=== PATIENT | male | born 1935 | race Caucasian/White ===

== ENCOUNTER 2018-10-05 01:33 | Inpatient (IN) | payer MEDICARE, OTHER ==
[~2018-10-05] VITALS: Ht 175.3 cm; Wt 119.9 kg
--- NOTE | 2018-10-05 01:43 | ED.ADGEN ---
Past History Past Medical History: Arthritis, CAD, CHF, COPD, Depression, Diabetes, Hypertension, Other Past Medical History Veinous stasis Adult General Chief Complaint Chief Complaint ".. I was getting up to go to the bathroom.. and tripped.. I hurt this Rt. knee it is hurting like a mother...".. 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 Pt. has bilateral abrasion and contusion to knee. Pt. can do straight leg lift with both. Has tenderness on attempts at ROM. Has marked venous stasis and leg edema which he states is chronic. Pt. has a history of diabetes, CHF, hypertension, arthritis, and coronary artery disease. Patient normally follows at NH.. Pt. some what a poor historian. Review of Systems Review of Systems Constitutional: Denies fever or chills [] Eyes: Denies change in visual acuity, redness, or eye pain [] HENT: Denies nasal congestion or sore throat [] Respiratory: Denies cough or shortness of breath [] Cardiovascular: No additional information not addressed in HPI [] GI: Denies abdominal pain, nausea, vomiting, bloody stools or diarrhea [] : Denies dysuria or hematuria [] Musculoskeletal: Denies back pain or joint pain other than chronic except for his current complaints of bilateral knee pain. complaints of generalized weakness. Integument: Denies rash or skin lesions [] Neurologic: Denies headache, focal weakness or sensory changes [] Endocrine: Denies polyuria or polydipsia [] All other systems were reviewed and found to be within normal limits, except as documented in this note. Family History Family History Noncontributory Current Medications Current Medications Current Medications Medications (Trade) Dose Ordered Sig/Royce Start Time Stop Time Status Last Admin Dose Admin Lactated Ringer's 1,000 ml @ 100 mls/hr Q10H 10/05/18 02:00 10/05/18 11:59 10/05/18 03:24 100 MLS/HR Allergies Allergies Allergies Coded Allergies Type Severity Reaction Last Updated Verified No Known Drug Allergies 10/05/18 No Physical Exam Physical Exam Constitutional: Moderate acute distress, non-toxic appearance. [] HENT: Normocephalic, atraumatic, bilateral external ears normal, oropharynx moist, no oral exudates, nose normal. [] Eyes: PERRLA, EOMI, conjunctiva normal, no discharge. [] Neck: Normal range of motion, no tenderness, supple, no stridor. [] Cardiovascular:Heart rate regular rhythm, no murmur []OH to the left Lungs & Thorax: Bilateral breath sounds equal at apex auscultation []some basilar crackles. Abdomen: Bowel sounds normal, soft, no tenderness, no masses, no pulsatile masses . Morbid obesity. Skin: Warm, dry, no erythema, no rash. [] Injection arnett on abd. Bilateral leg veinous stasis.. Back: No tenderness, no CVA tenderness. [] Extremities: bilateral leg and knee tenderness, no cyanosis, no clubbing, ROM intact, bilateral leg edema. [] Neurologic: Alert and oriented X 3 , moves ext. on request, decreased distal foot sensory, no gross focal deficits noted. [] Psychologic: Affect anxious, judgement normal, mood normal. [] Current Patient Data Vital Signs Vital Signs Date Time Temp Pulse Resp B/P (MAP) Pulse Ox O2 Delivery O2 Flow Rate FiO2 10/05/18 01:44 98.4 79 16 96 Room Air Lab Results Laboratory Tests Test 10/05/18 03:00 10/05/18 03:09 Urine Collection Type Unknown Urine Color Yellow Urine Clarity Clear Urine pH 5.5 Urine Specific [place] 1.015 Urine Protein Neg (NEG-TRACE) Urine Glucose (UA) Neg mg/dL (NEG) Urine Ketones (Stick) Neg mg/dL (NEG) Urine Blood Neg (NEG) Urine Nitrite Neg (NEG) Urine Bilirubin Neg (NEG) Urine Urobilinogen Dipstick 0.2 mg/dL (0.2 mg/dL) Urine Leukocyte Esterase Neg (NEG) Urine RBC 0 /HPF (0-2) Urine WBC Occ /HPF (0-4) Urine Squamous Epithelial Cells Occ /LPF Urine Bacteria 0 /HPF (0-FEW) Urine Opiates Screen Pos (NEG) Urine Methadone Screen Neg (NEG) Urine Barbiturates Neg (NEG) Urine Phencyclidine Screen Neg (NEG) Urine Amphetamine/Methamphetamine Neg (NEG) Urine Benzodiazepines Screen Neg (NEG) Urine Cocaine Screen Neg (NEG) Urine Cannabinoids Screen Neg (NEG) Urine Ethyl Alcohol Neg (NEG) White Blood Count 8.4 x10^3/uL (4.0-11.0) Red Blood Count 3.52 x10^6/uL (4.30-5.70) L Hemoglobin 10.2 g/dL (13.0-17.5) L Hematocrit 31.4 % (39.0-53.0) L Mean Corpuscular Volume 89 fL (79-100) Mean Corpuscular Hemoglobin 29 pg (25-35) Mean Corpuscular Hemoglobin Concent 32 g/dL (31-37) Red Cell Distribution Width 15.7 % (11.5-14.5) H Platelet Count 189 x10^3/uL (140-400) Neutrophils (%) (Auto) 79 % (31-73) H Lymphocytes (%) (Auto) 10 % (24-48) L Monocytes (%) (Auto) 10 % (0-9) H Eosinophils (%) (Auto) 0 % (0-3) Basophils (%) (Auto) 0 % (0-3) Neutrophils # (Auto) 6.7 x10^3uL (1.8-7.7) Lymphocytes # (Auto) 0.9 x10^3/uL (1.0-4.8) L Monocytes # (Auto) 0.9 x10^3/uL (0.0-1.1) Eosinophils # (Auto) 0.0 x10^3/uL (0.0-0.7) Basophils # (Auto) 0.0 x10^3/uL (0.0-0.2) Prothrombin Time 13.7 SEC (9.4-11.4) H Prothrombin Time INR 1.3 (0.9-1.1) H Activated Partial Thromboplast Time 32 SEC (23-33) D-Dimer ([place]) 0.66 mg/L (0.00-0.50) H Sodium Level 139 mmol/L (136-145) Potassium Level 4.7 mmol/L (3.5-5.1) Chloride Level 105 mmol/L (98-107) Carbon Dioxide Level 29 mmol/L (21-32) Anion Gap 5 (6-14) L Blood Urea Nitrogen 42 mg/dL (8-26) H Creatinine 1.7 mg/dL (0.7-1.3) H Estimated GFR (Cockcroft-Gault) 38.7 Glucose Level 119 mg/dL (70-99) H Calcium Level 8.7 mg/dL (8.5-10.1) Magnesium Level 2.0 mg/dL (1.8-2.4) Total Bilirubin 0.5 mg/dL (0.2-1.0) Direct Bilirubin 0.1 mg/dL (0.0-0.2) Aspartate Amino Transferase (AST) 16 U/L (15-37) Alanine Aminotransferase (ALT) 12 U/L (16-63) L Alkaline Phosphatase 60 U/L (46-116) Creatine Kinase 93 U/L (39-308) Troponin I Quantitative 0.383 ng/mL (0-0.055) H UB-Ovf-O-Type Natriuretic Peptide 2062 pg/mL (0-449) H Total Protein 7.3 g/dL (6.4-8.2) Albumin 2.8 g/dL (3.4-5.0) L Lipase 71 U/L (73-393) L EKG EKG My interpretation of EKG shows a sinus rhythm at 78. There is prolonged VA interval first-degree block. Left axis deviation. And fascicular block. But no findings acute STEMI with contralateral changes.[] Radiology/Procedures Radiology/Procedures My interpretation a film shows marked degenerative joint changes. No obvious displaced fracture or dislocation..[] My interpretation chest x-ray shows cardiomegaly. Some cephalization consistent with CHF. Has findings consistent with COPD. See formal [place] [address] IMAGING REPORT Signed PATIENT: LUZ MARINA COHEN ACCOUNT: [id number] : 1935 LOCATION: ER AGE: 83 SEX: M EXAM STATUS: REG ER ORD. PHYSICIAN: CHECO DAVID MD REASON: Fall, rigth knee pain PROCEDURE: KNEE RIGHT 4V 4 view right knee dated 10/05/2018. No comparison available. CLINICAL INDICATION: Pain after fall. FINDINGS: 4 views right knee show normal bony alignment. No displaced fracture. Moderate tricompartmental hypertrophic change with small marginal osteophytes. No apparent joint effusion or loose body. Diffuse soft tissue swelling. IMPRESSION: 1. No acute radiographic abnormality. 2. Moderate tricompartmental DJD. 3. Diffuse soft tissue swelling. Electronically signed by: Efrain Cool MD (10/05/2018 3:57 AM) [facility] DICTATED AND SIGNED BY: EFRAIN COOL MD DATE: 10/05/18356 CC: CHECO DAVID MD; PCP,NO ~ [place] [address] IMAGING REPORT Signed PATIENT: LUZ MARINA COHEN ACCOUNT: [id number] : 1935 LOCATION: ER AGE: 83 SEX: M EXAM STATUS: REG ER ORD. PHYSICIAN: CHECO DAVID MD REASON: Fall, chest and back pain PROCEDURE: PORTABLE CHEST 1V Single view chest dated 10/05/2018. No comparison available. CLINICAL INDICATION: Pain after fall. FINDINGS: Single upright portable exam performed. Heart and mediastinal contours within normal limits. Lungs are somewhat hypoinflated but otherwise clear. No consolidation or pleural effusion. No pneumothorax. IMPRESSION: No acute radiographic abnormality. Electronically signed by: Efrain Cool MD (10/05/2018 3:59 AM) [facility] DICTATED AND SIGNED BY: EFRAIN COOL MD DATE: 10/05/18358 CC: CHECO DAVID MD; PCP,NO ~ Course & Med Decision Making Course & Med Decision Making Pertinent Labs and Imaging studies reviewed. (See chart for details) Heart score 5-[address] Aldrich-with cardiology consult. [] Final Impression Final Impression 1. Fall 2. Abrasion/ Contusions 3. Bilateral Knee Pain Rt> Lt. 4. Weakness 5. Elevated Trop. 0.383 6. CHF systolic and diastolic-- BNP 2061 7. Anemia 10.2 8. Elevated creatinine and BUN/42/1.7 9. DM 10. Malnutrition Alb. 2.8 11. Elevated D-dimer ( Reportedly on Eliquis) 12. HTN [] Dragon Disclaimer Dragon Disclaimer This electronic medical record was generated, in whole or in part, using a voice recognition dictation system. Dragon Disclaimer This chart was dictated in whole or in part using Voice Recognition software in a busy, high-work load, and often noisy Emergency Department environment. It may contain unintended and wholly unrecognized errors or omissions. CHECO DAVID MD Oct 05, 2018 01:43
[2018-10-05] MEDS ORDERED: IV RINGERS SOLUTION,LACTATED 1,000 ML IV SCH (02:00)
[2018-10-05 03:27] LABS: BASO % 0 % (0-3); EOS % 0 % (0-3); HEMATOCRIT 31.4 % (39.0-53.0); HEMOGLOBIN 10.2 g/dL (13.0-17.5); LYMPH # 0.9 x10^3/uL (1.0-4.8); LYMPH % 10 % (24-48); MEAN CORPUSCULAR HEMOGLOBIN 29 pg (25-35); MEAN CORPUSCULAR HGB CONC 32 g/dL (31-37); MEAN CORPUSCULAR VOLUME 89 fL (79-100); MONO # 0.9 x10^3/uL (0.0-1.1); MONO % 10 % (0-9); NEUT # 6.7 x10^3uL (1.8-7.7); NEUT % 79 % (31-73); PLATELET COUNT 189 x10^3/uL (140-400); RED BLOOD COUNT 3.52 x10^6/uL (4.30-5.70); RED CELL DISTRIBUTION WIDTH 15.7 % (11.5-14.5); WHITE BLOOD COUNT 8.4 x10^3/uL (4.0-11.0)
[2018-10-05 03:36] LABS: BARBITURATES NEG (NEG); BENZODIAZEPINES NEG (NEG); BILIRUBIN,URINE NEG (NEG); CANNABINOIDS NEG (NEG); CLARITY,URINE CLEAR; COCAINE NEG (NEG); COLOR,URINE YELLOW; GLUCOSE,URINE NEG (NEG); METHADONE NEG (NEG); OPIATES POS (NEG); PHENCYCLIDINE NEG (NEG)
[2018-10-05 03:37] LABS: BACTERIA,URINE 0 /HPF (0-FEW); NITRITE,URINE NEG (NEG); RBC,URINE 0 /HPF (0-2); SQUAMOUS EPITHELIAL CELL,UR OCC /LPF; UROBILINOGEN,URINE 0.2 mg/dL (0.2 mg/dL); WBC,URINE OCC /HPF (0-4)
[2018-10-05 03:38] LABS: AMPHETAMINE/METHAMPHETAMINE NEG (NEG)
[2018-10-05 03:45] LABS: ALBUMIN 2.8 g/dL (3.4-5.0); CALCIUM 8.7 mg/dL (8.5-10.1); CREATININE 1.7 mg/dL (0.7-1.3); DIRECT BILIRUBIN 0.1 mg/dL (0.0-0.2); GFR 38.7; POTASSIUM 4.7 mmol/L (3.5-5.1); TOTAL BILIRUBIN 0.5 mg/dL (0.2-1.0); TOTAL PROTEIN 7.3 g/dL (6.4-8.2)
--- NOTE | 2018-10-05 04:00 | RAD ---
4 view right knee dated 10/05/2018. No comparison available. CLINICAL INDICATION: Pain after fall. FINDINGS: 4 views right knee show normal bony alignment. No displaced fracture. Moderate tricompartmental hypertrophic change with small marginal osteophytes. No apparent joint effusion or loose body. Diffuse soft tissue swelling. IMPRESSION: 1. No acute radiographic abnormality. 2. Moderate tricompartmental DJD. 3. Diffuse soft tissue swelling. Electronically signed by: Efrain Cool MD (10/05/2018 3:57 AM) [facility]
--- NOTE | 2018-10-05 04:02 | RAD ---
Single view chest dated 10/05/2018. No comparison available. CLINICAL INDICATION: Pain after fall. FINDINGS: Single upright portable exam performed. Heart and mediastinal contours within normal limits. Lungs are somewhat hypoinflated but otherwise clear. No consolidation or pleural effusion. No pneumothorax. IMPRESSION: No acute radiographic abnormality. Electronically signed by: Efrain Cool MD (10/05/2018 3:59 AM) [facility]
[2018-10-05] MEDS ORDERED: ONDANSETRON PF 4 MG/2 ML VIAL. IV PRN (04:15)
[2018-10-05] MEDS ORDERED: ACETAMINOPHEN 325 MG TABLET PO PRN (04:15)
[2018-10-05] MEDS ORDERED: ASPIRIN 325 MG TABLET PO ONE (04:30)
[2018-10-05] MEDS ORDERED: MORPHINE SULFATE 10 MG/ML SYRINGE. SQ ONE (04:30)
[2018-10-05] MEDS ORDERED: ENOXAPARIN ** NOTE DOSE ** SYRINGE SQ ONE (04:30)
[2018-10-05] MEDS ORDERED: NITROGLYCERIN OINT 1 GM PACKET. TP ONE (04:30)
[2018-10-05] MEDS ORDERED: FUROSEMIDE 40 MG/4 ML VIAL IVP ONE (04:30)
[2018-10-05 05:17] VITALS: BP 109/63
[2018-10-05] MEDS ORDERED: ANTI-COAG MONITOR BY PHARMACY. MC PRN (06:15)
--- NOTE | 2018-10-05 06:46 | EKG ---
[address] [address] Test Date: 2018-10-05 Test Time: 02:02:02 Pat Name: LUZ MARINA COHEN Department: Room: 105 A Gender: Assembly Inspector: : 1935 Requested By: CHECO DAVID Order Number: [id number] Reading MD: Broderick Barraza MD Measurements Intervals [place] Rate: P: ID: QRS: QRSD: T: QT: QTc: Interpretive Statements SR Electronically Signed On 10-12-2018 16:52:24 CDT by Broderick Barraza MD
[2018-10-05] MEDS: IPRATRPIUM/ALBUTEROL 0.5/2.5MG 3 ML NEBU. NEB SCH ×4 (08:00→18:20)
--- NOTE | 2018-10-05 08:09 | PDOC2 ---
CARDIAC CONSULT DATE OF CONSULT Date Of Consult DATE: 10/05/18 TIME: 08:05 REASON FOR CONSULT Reason for Consult CHF Elevated troponin REFERRING PHYSICIAN Referring Physician Dr. Morin SOURCE Source: Chart review, Patient HPI History of Present Illness This is an 83 yo male who presented with right knee pain secondary to fall. Byron sandra reports he was up out of bed about midnight to us the restroom. Stood up from the commode and pulled up his undergarments. Took a step forward and his right knee gave out, subsequently falling to the floor. Was unable to get up. Was on the floor for about 3 hours until was awake and heard him yelling for help. She called EMS. Troponin noted to be mildly elevated upon arrival, which prompted this consult. Patient denies any chest pain, dizziness, diaphoresis, palpitations, shortness of breath at rest, or nausea/vomiting. Does complain of [place], which he reports as his baseline. No recent illness/fevers. Does report decreased oral intake more recently. Takes Lasix at home. PAST MEDICAL HISTORY Cardiovascular: CHF, HTN, hyperipidemia, Other (Lymphedema ) Pulmonary: COPD Psych: Depression Musculoskeletal: Osteoarthritis Endocrine: Diabetes PAST SURGICAL HISTORY Past Surgical History: No pertinent history FAMILY HISTORY Family History: Diabetes, Hypertension, Stroke (mother ) SOCIAL HISTORY Smoke: No ALCOHOL: none Drugs: None Lives: with Family CURRENT MEDICATIONS Current Medications Current Medications Lactated Ringer's 1,000 ml @ 100 mls/hr Q10H IV Last administered on 10/05/18at 03:24; Start 10/05/18 at 02:00; Stop 10/05/18 at 11:59 Aspirin (Shayy Aspirin) 325 mg 1X ONCE PO Last administered on 10/05/18at 04:21; Start 10/05/18 at 04:30; Stop 10/05/18 at 04:31; Status DC Enoxaparin Sodium (Lovenox 120mg Syringe) 120 mg 1X ONCE SQ Last administered on 10/05/18at 06:03; Start 10/05/18 at 04:30; Stop 10/05/18 at 04:31; Status DC Nitroglycerin (Nitro-Bid Oint) 1 inch 1X ONCE TP Last administered on 10/05/18at 04:21; Start 10/05/18 at 04:30; Stop 10/05/18 at 04:31; Status DC Ondansetron HCl (Zofran) 4 mg PRN Q4HRS PRN IV NAUSEA/VOMITING; Start 10/05/18 at 04:15; Stop 10/06/18 at 04:14 Albuterol/ Ipratropium (Duoneb) 3 ml RTQID NEB ; Start 10/05/18 at 08:00; Stop 10/06/18 at 07:59 Furosemide (Lasix) 40 mg 1X ONCE IVP Last administered on 10/05/18at 04:28; Start 10/05/18 at 04:30; Stop 10/05/18 at 04:31; Status DC Enoxaparin Sodium (Lovenox 120mg Syringe) 120 mg Q12HR SQ ; Start 10/05/18 at 21:00 Aspirin (Children'S Aspirin) 81 mg DAILY PO ; Start 10/05/18 at 09:00 Acetaminophen (Tylenol) 650 mg PRN Q4HRS PRN PO FEVER; Start 10/05/18 at 04:15; Stop 10/06/18 at 04:14 Morphine Sulfate (Morphine 10mg Syringe) 10 mg 1X ONCE SQ Last administered on 10/05/18at 04:20; Start 10/05/18 at 04:30; Stop 10/05/18 at 04:31; Status DC Nystatin (Nystop) 1 milo BID TP ; Start 10/05/18 at 09:00 Info (Anti-Coagulation Monitoring By Pharmacy) 1 each PRN DAILY PRN MC SEE COMMENTS; Start 10/05/18 at 06:15; Stop 10/05/18 at 07:09; Status DC ALLERGIES Allergies: Coded Allergies: No Known Drug Allergies (Unverified , 10/05/18) ROS Review of Systems 14 point ROS conducted with pertinent positives noted above in HPI. PHYSICAL EXAM General: Alert, Oriented X3, Cooperative, No acute distress HEENT: Atraumatic, Mucous membr. moist/pink Lungs: Clear to auscultation Heart: Regular rate, Normal S1, Normal S2, Other (2/6 systolic murmur ) Abdomen: Soft, No tenderness Extremities: Other (lymphedema ) Skin: No breakdown Neuro: Normal speech, Sensation intact Psych/Mental Status: Mental status NL, Mood NL MUSCULOSKELETAL: Osteoarthritic changes both hands VITALS Vital Signs Vital Signs Date Time Temp Pulse Resp B/P (MAP) Pulse Ox O2 Delivery O2 Flow Rate FiO2 10/05/18 05:17 98.1 78 22 109/63 (78) 94 Room Air LABS LABS Laboratory Tests Test 10/05/18 03:00 10/05/18 03:09 Urine Collection Type Unknown Urine Color Yellow Urine Clarity Clear Urine pH 5.5 Urine Specific [place] 1.015 Urine Protein Neg (NEG-TRACE) Urine Glucose (UA) Neg mg/dL (NEG) Urine Ketones (Stick) Neg mg/dL (NEG) Urine Blood Neg (NEG) Urine Nitrite Neg (NEG) Urine Bilirubin Neg (NEG) Urine Urobilinogen Dipstick 0.2 mg/dL (0.2 mg/dL) Urine Leukocyte Esterase Neg (NEG) Urine RBC 0 /HPF (0-2) Urine WBC Occ /HPF (0-4) Urine Squamous Epithelial Cells Occ /LPF Urine Bacteria 0 /HPF (0-FEW) Urine Opiates Screen Pos (NEG) Urine Methadone Screen Neg (NEG) Urine Barbiturates Neg (NEG) Urine Phencyclidine Screen Neg (NEG) Urine Amphetamine/Methamphetamine Neg (NEG) Urine Benzodiazepines Screen Neg (NEG) Urine Cocaine Screen Neg (NEG) Urine Cannabinoids Screen Neg (NEG) Urine Ethyl Alcohol Neg (NEG) White Blood Count 8.4 x10^3/uL (4.0-11.0) Red Blood Count 3.52 x10^6/uL (4.30-5.70) Hemoglobin 10.2 g/dL (13.0-17.5) Hematocrit 31.4 % (39.0-53.0) Mean Corpuscular Volume 89 fL (79-100) Mean Corpuscular Hemoglobin 29 pg (25-35) Mean Corpuscular Hemoglobin Concent 32 g/dL (31-37) Red Cell Distribution Width 15.7 % (11.5-14.5) Platelet Count 189 x10^3/uL (140-400) Neutrophils (%) (Auto) 79 % (31-73) Lymphocytes (%) (Auto) 10 % (24-48) Monocytes (%) (Auto) 10 % (0-9) Eosinophils (%) (Auto) 0 % (0-3) Basophils (%) (Auto) 0 % (0-3) Neutrophils # (Auto) 6.7 x10^3uL (1.8-7.7) Lymphocytes # (Auto) 0.9 x10^3/uL (1.0-4.8) Monocytes # (Auto) 0.9 x10^3/uL (0.0-1.1) Eosinophils # (Auto) 0.0 x10^3/uL (0.0-0.7) Basophils # (Auto) 0.0 x10^3/uL (0.0-0.2) Prothrombin Time 13.7 SEC (9.4-11.4) Prothromb Time International Ratio 1.3 (0.9-1.1) Activated Partial Thromboplast Time 32 SEC (23-33) D-Dimer ([place]) 0.66 mg/L (0.00-0.50) Sodium Level 139 mmol/L (136-145) Potassium Level 4.7 mmol/L (3.5-5.1) Chloride Level 105 mmol/L (98-107) Carbon Dioxide Level 29 mmol/L (21-32) Anion Gap 5 (6-14) Blood Urea Nitrogen 42 mg/dL (8-26) Creatinine 1.7 mg/dL (0.7-1.3) Estimated GFR (Cockcroft-Gault) 38.7 Glucose Level 119 mg/dL (70-99) Calcium Level 8.7 mg/dL (8.5-10.1) Magnesium Level 2.0 mg/dL (1.8-2.4) Total Bilirubin 0.5 mg/dL (0.2-1.0) Direct Bilirubin 0.1 mg/dL (0.0-0.2) Aspartate Amino Transf (AST/SGOT) 16 U/L (15-37) Alanine Aminotransferase (ALT/SGPT) 12 U/L (16-63) Alkaline Phosphatase 60 U/L (46-116) Creatine Kinase 93 U/L (39-308) Troponin I Quantitative 0.383 ng/mL (0-0.055) ZS-Xgd-J-Type Natriuretic Peptide 2062 pg/mL (0-449) Total Protein 7.3 g/dL (6.4-8.2) Albumin 2.8 g/dL (3.4-5.0) Lipase 71 U/L (73-393) ASSESSMENT/PLAN Assessment/Plan 1. Fall, mechanical with right knee pain. No acute fractures 2. Mild troponin elevation; initial 0.383. Most probably type II, demand ischemia in the setting of TYLOR 3. TYLOR; IVFs 4. Chronic diastolic HF; appears clinically compensated. 5. Hypertension; controlled 6. Hyperlipidemia 7. Diabetes, II; as per PCP 8. Chronic LE lymphedema Recommendations Hold Lasix for now IVFs ASA Echo to assess LV systolic function Trend troponin, lipid panel Supportive care from a CV standpoint Consider outpatient ischemic evaluation unless echo significantly abnormal. GENEVIEVE VERA APRN Oct 05, 2018 08:09
[2018-10-05] MEDS: ASPIRIN 81 MG TAB.CHEW PO SCH (08:49)
--- NOTE | 2018-10-05 09:44 | RAD ---
Examination: Bilateral Lower Extremity Venous Doppler Ultrasound History: Bilateral lower extremity edema Comparison: None Procedure: [place] scale, color flow 2D and spectal waveform analysis images are obtained with and without compression in the area of the common femoral vein, superficial femoral vein - femoral vein junction, main femoral vein (superficial femoral vein) and popliteal vein. Veins of the proximal calf are also imaged. Findings: There is normal duplex flow, color flow and compressibility of all visualized vein segments. No evidence of deep venous thrombus is present. Impression: No evidence of bilateral lower extremity DVT. Electronically signed by: Papi Morales MD (10/05/2018 9:40 AM) [facility]
[2018-10-05 10:53] VITALS: BP 135/61
[2018-10-05] MEDS ORDERED: HEPARIN 25,000UTS/500ML PREMIX 500 ML IV PRN (11:00)
[2018-10-05] MEDS ORDERED: HEPARIN for IV BOLUS 10,000 UNIT/10 ML VIAL. IV PRN ×2 (11:00)
[2018-10-05] MEDS ORDERED: HEPARIN for IV BOLUS 10,000 UNIT/10 ML VIAL. IV ONE (11:00)
[2018-10-05] MEDS: NYSTATIN TOPICAL POWDER 15GM BOTTLE. TP SCH ×2 (13:07→20:59)
[2018-10-05] MEDS: INSULIN LISPRO 300 UNITS/3 ML VIAL. SQ SCH ×2 (13:09→18:37)
[2018-10-05] MEDS ORDERED: LIDO35.4 TP (13:51)
[2018-10-05] MEDS ORDERED: HYDR-2765 PO ×2 (13:51)
[2018-10-05] MEDS ORDERED: OXYB5TAB7 PO (13:51)
[2018-10-05] MEDS ORDERED: IPRA3AMP29 NEB (13:51)
[2018-10-05] MEDS ORDERED: CHOL100013 PO (13:51)
[2018-10-05] MEDS ORDERED: SILV20CR14 TP (13:51)
[2018-10-05] MEDS ORDERED: POLY17PO5 PO (13:51)
[2018-10-05] MEDS ORDERED: FLUT50DI IH (13:51)
[2018-10-05] MEDS ORDERED: RIVA20TA2 PO (13:51)
[2018-10-05] MEDS ORDERED: MENT120C2 TP (13:51)
[2018-10-05] MEDS ORDERED: SPIR25TA5 PO (13:51)
[2018-10-05] MEDS ORDERED: METO100T7 PO (13:51)
[2018-10-05] MEDS ORDERED: LOSA100T14 PO (13:51)
[2018-10-05] MEDS ORDERED: ASPI-630 PO (13:51)
[2018-10-05 15:30] VITALS: BP 149/65
[2018-10-05] MEDS ORDERED: LIDOCAINE 5% TOPICAL OINTMENT 35GM TUBE. TP PRN (15:45)
[2018-10-05] MEDS ORDERED: POLYETHYLENE GLYCOL 3350 17 GM PACKET. PO PRN (15:45)
--- NOTE | 2018-10-05 15:54 | CARD ---
MR#: [id number] Date of Study: 10/05/2018 Ordering Physician: GENEVIEVE VERA, Referring Physician: GENEVIEVE VERA, Tech: Naomie Schmidt RDCS APPROVED REPORT EXAM: Two-dimensional and M-mode echocardiogram with Doppler and color Doppler. Other Information Quality : Technically Limited Technically limited study due to body habitus and supine position INDICATION Congestive Heart Failure Elevated Troponin RISK FACTORS Obesity 2D DIMENSIONS RVDd3.1 (2.9-3.5cm)Left Atrium(2D)3.6 (1.6-4.0cm) IVSd1.3 (0.7-1.1cm)Aortic Root(2D)3.4 (2.0-3.7cm) LVDd4.5 (3.9-5.9cm)PWd1.2 (0.7-1.1cm) LVDs2.8 (2.5-4.0cm)FS (%) 36.8 % SV61.7 mlLVEF(%)66.8 (>50%) Aortic Valve AoV Peak David.134.4cm/sAoV VTI28.9cm AO Peak GR.7.2mmHgAO Mean GR.5mmHg MONA (VTI)3.25cm2 Mitral Valve MV E Lcystxsf16.7cm/sMV DECEL SWHN596ar MV A Qjdwahrd155.6cm/sE/A Ratio0.7 LEFT VENTRICLE The left ventricle is normal size. There is mild concentric left ventricular hypertrophy. Left ventri jeanine systolic function is normal. The Ejection Fraction is 55-60%. Transmitral Doppler flow pattern is Grade I-abnormal relaxation pattern. RIGHT VENTRICLE The right ventricle is normal size. The right ventricular systolic function is normal. ATRIA The left atrium size is normal. The right atrium size is normal. The interatrial septum is intact wit h no evidence for an atrial septal defect or patent foramen ovale as noted on 2-D or Doppler imaging. AORTIC VALVE The aortic valve is not well visualized but appears to be functioning normally by Doppler interrogati on. Doppler and Color Flow revealed no significant aortic regurgitation. There is no significant aort ic valvular stenosis. MITRAL VALVE The mitral valve is calcified but opens well. There is no evidence of mitral valve prolapse. There is no mitral valve stenosis. Doppler and Color Flow revealed no mitral valve regurgitation noted. TRICUSPID VALVE The tricuspid valve is normal in structure and function. Doppler and Color Flow revealed no tricuspid valve regurgitation noted. There is no tricuspid valve stenosis. PULMONIC VALVE The pulmonic valve is not well visualized. Doppler and Color Flow revealed no pulmonic valvular regur gitation. There is no pulmonic valvular stenosis. GREAT VESSELS The aortic root is normal in size. The ascending aorta is not well seen. The IVC is normal in size an d collapses >50% with inspiration. PERICARDIAL EFFUSION There is no evidence of significant pericardial effusion. Critical Notification Critical Value: No <Conclusion> Technically difficult study. Left ventricle systolic function is normal. The Ejection Fraction is 55-60%. Transmitral Doppler flow pattern is Grade I-abnormal relaxation pattern. There is no evidence of significant pericardial effusion. Signed by : Christian Carter, Electronically Approved : 10/05/2018 15:54:31
[2018-10-05] MEDS ORDERED: VITS A & D/LANOLIN TOPICAL OINTMENT 56GM TUBE. TP PRN (16:30)
[2018-10-05] MEDS ORDERED: METHYL SALICYLATE/MENTHOL TOPICAL OINTMENT 29GM TUBE. TP PRN (16:30)
[2018-10-05] MEDS: IV NORMAL SALINE 1,000ML 1,000 ML IV SCH (16:38)
[2018-10-05] MEDS: HYDROcodone/APAP 7.5/325MG 1 TAB TABLET PO PRN (16:39)
[2018-10-05] MEDS ORDERED: IPRATRPIUM/ALBUTEROL 0.5/2.5MG 3 ML NEBU. NEB SCH (17:00)
[2018-10-05 18:52] VITALS: BP 155/99
[2018-10-05 18:57] VITALS: BP 156/67
[2018-10-05] MEDS ORDERED: INSU100I13 SQ (19:33)
[2018-10-05] MEDS: BUDESONIDE 0.5 MG/2 ML NEBU NEB SCH (19:55)
[2018-10-05] MEDS: AMMONIUM LACTATE 12% TOPICAL LOTION 226GM BOTTLE. TP SCH (20:26)
[2018-10-05] MEDS ORDERED: INSULIN GLARGINE 300 UNITS/3 ML INSULN.PEN. SQ SCH (21:00)
[2018-10-05] MEDS ORDERED: ENOXAPARIN ** NOTE DOSE ** SYRINGE SQ SCH (21:00)
[2018-10-05] MEDS ORDERED: OXYBUTYNIN CHLORIDE 5 MG TABLET PO SCH (21:00)
[2018-10-05 21:15] VITALS: BP 127/73
[2018-10-05] MEDS: METOPROLOL TART IMMED RELEASE 50 MG TABLET PO SCH (21:26)
[2018-10-06 00:56] VITALS: BP 129/81
[2018-10-06] MEDS: IV NORMAL SALINE 1,000ML 1,000 ML IV SCH (05:05)
[2018-10-06 05:10] VITALS: BP 109/54
[2018-10-06] MEDS: BUDESONIDE 0.5 MG/2 ML NEBU NEB SCH (05:25)
[2018-10-06] MEDS: IPRATRPIUM/ALBUTEROL 0.5/2.5MG 3 ML NEBU. NEB SCH (05:25)
[2018-10-06 06:13] LABS: BASO % 1 % (0-3); EOS % 0 % (0-3); HEMATOCRIT 27.7 % (39.0-53.0); HEMOGLOBIN 9.1 g/dL (13.0-17.5); LYMPH # 0.9 x10^3/uL (1.0-4.8); LYMPH % 15 % (24-48); MEAN CORPUSCULAR HEMOGLOBIN 29 pg (25-35); MEAN CORPUSCULAR HGB CONC 33 g/dL (31-37); MEAN CORPUSCULAR VOLUME 89 fL (79-100); MONO # 0.8 x10^3/uL (0.0-1.1); MONO % 13 % (0-9); NEUT # 4.4 x10^3uL (1.8-7.7); NEUT % 72 % (31-73); PLATELET COUNT 170 x10^3/uL (140-400); RED BLOOD COUNT 3.11 x10^6/uL (4.30-5.70); RED CELL DISTRIBUTION WIDTH 15.9 % (11.5-14.5); WHITE BLOOD COUNT 6.1 x10^3/uL (4.0-11.0)
[2018-10-06 06:21] LABS: CALCIUM 8.4 mg/dL (8.5-10.1); CREATININE 1.3 mg/dL (0.7-1.3); GFR 52.7; POTASSIUM 4.4 mmol/L (3.5-5.1)
[2018-10-06] MEDS: HYDROcodone/APAP 7.5/325MG 1 TAB TABLET PO PRN (06:23)
[2018-10-06] MEDS: ASPIRIN 81 MG TAB.CHEW PO SCH (08:42)
[2018-10-06] MEDS: AMMONIUM LACTATE 12% TOPICAL LOTION 226GM BOTTLE. TP SCH (08:43)
[2018-10-06] MEDS: INSULIN LISPRO 300 UNITS/3 ML VIAL. SQ SCH ×2 (08:45→12:00)
[2018-10-06] MEDS: METOPROLOL TART IMMED RELEASE 50 MG TABLET PO SCH (08:56)
[2018-10-06] MEDS: NYSTATIN TOPICAL POWDER 15GM BOTTLE. TP SCH (08:57)
[2018-10-06] MEDS ORDERED: SPIRONOLACTONE 25 MG TABLET PO SCH (09:00)
[2018-10-06] MEDS ORDERED: ASPIRIN 81 MG TAB.CHEW PO SCH (09:00)
[2018-10-06] MEDS ORDERED: CHOLECALCIFEROL (VITAMIN D3) 1,000 UNIT TABLET PO SCH (09:00)
[2018-10-06] MEDS ORDERED: LOSARTAN 50 MG TABLET. PO SCH (09:00)
[2018-10-06] MEDS ORDERED: RIVAROXABAN 10 MG TABLET. PO SCH (09:00)
[2018-10-06] MEDS ORDERED: silver sulfADIAZINE 1% CREAM 50GM JAR. TP SCH (09:00)
[2018-10-06] MEDS ORDERED: NON FORMULARY ITEM (Fluticasone Propionate (Flovent 50MCG Diskus) 50 MCG) IH SCH (09:00)
[2018-10-06] MEDS ORDERED: DOCUSATE SODIUM 100 MG CAPSULE PO SCH (09:15)
--- NOTE | 2018-10-06 09:30 | HP ---
ADMIT DATE: 10/05/2018 HISTORY OF PRESENT ILLNESS: The patient is an 83-year-old male patient who came to the Emergency Room complaining of pain in his both knees. Apparently, he was getting up to go to the bathroom and tripped and hurt his right knee. When he arrived here, he had bilateral abrasions and contusion to the knee. The patient can do straight leg lift ____ tenderness on attempts at range of motion, has marked venous stasis and leg edema, which he states is chronic. The patient is known to have type 2 diabetes, hypertension, congestive heart failure, osteoarthritis and coronary artery disease. He normally follows at the [facility]. He was extensively evaluated in the Emergency Room and was found to have normochromic normocytic anemia and slightly elevated D-dimer. He has chronic kidney injury. BUN of 42 and creatinine 1.7. His troponin was slightly elevated at ____ more than 2000. He has also hypoalbuminemia. Urinalysis was unremarkable. Toxic screen was positive for opiates. X-ray of his knee showed no acute ____ abnormality, moderate tricompartmental degenerative joint disease, diffuse soft tissue swelling. The patient was admitted with fall, increasing confusion, bilateral knee pain more on the right than left, generalized weakness, elevated troponin, congestive heart failure, normochromic normocytic anemia, and hypertension. We will do 2 more sets of cardiac enzyme, consult Cardiology. PAST MEDICAL HISTORY: Significant for hypertension, type 2 diabetes, congestive heart failure, generalized osteoarthritis, and COPD. PAST SURGICAL HISTORY: Significant for bilateral cataract extraction, vein stripping of both lower extremities, and colonoscopy. ALLERGIES: He has no known drug allergies. MEDICATIONS: He is currently on following medications: He is on ipratropium bromide, albuterol sulfate, DuoNeb treatment 3 mL by nebulizer 4 times a day, rivaroxaban ____ 20 mg daily, metoprolol tartrate 150 mg twice a day, losartan potassium 100 mg daily, spironolactone 25 mg once a day, aspirin 81 mg once a day, hydrocodone/APAP 7.5/325 one tablet once a day, Flovent 50 mcg by inhaler once a day, ____ 17 g daily p.r.n. for constipation, ____ applied topically daily, lidocaine cream or ointment apply topically twice a day. He is on menthol 120 g apply topically 3 times a day, oxybutynin chloride 10 mg at bedtime, cholecalciferol, vitamin D3 1000 international units once a day. FAMILY HISTORY: He has 3 sisters and 2 brothers, older and . There is a strong family history of hypertension and diabetes. His father at the age of 81 because of cerebrovascular accident and mother at age of 48 because of cerebrovascular accident. SOCIAL HISTORY: He is , has 1 son and 2 daughters. He is an ex-smoker, quit in his 30s. He does not drink alcohol or use any recreational drugs. He was in the army for 2 years and ____; after that, he worked in the [employer] for almost 30 years. REVIEW OF SYSTEMS: The patient denied any blurring of vision. He has bilateral cataract extraction, but denied any glaucoma or macular degeneration. Denied any earache, tinnitus or sensorineural deafness. Denied any nosebleeds, stuffy nose or postnasal drip. Denied any sore throat, sore tongue, toothache, hoarseness of voice or difficulty swallowing. Denied any nausea, vomiting, diarrhea, or constipation. Denied any hematemesis, melena or hematochezia. Denied any dysuria, frequency or hematuria. Denied any chest pain. Did complain of shortness of breath on exertion, but denied any orthopnea or paroxysmal nocturnal dyspnea. Denied any cough, phlegm or hemoptysis. Denied any chills, rigors or fever. PHYSICAL EXAMINATION: GENERAL: On arrival to the Emergency Room, he looked well and was clearly in no apparent respiratory distress. No pallor, jaundice, cyanosis, or thyromegaly. No jugular venous distension. No limb edema. VITAL SIGNS: His heart rate was 79, blood pressure was 134/65, temperature was 98.4, respiratory rate was 16, and oxygen saturation was 96%. HEENT: Normocephalic, atraumatic. NECK: Supple. HEART: Showed normal first and second heart sounds with no gallop, rub or murmur. CHEST: Clear to auscultation. No crepitation or rhonchi. ABDOMEN: Distended, soft, nontender. No guarding or rigidity. No organomegaly. All hernial orifice intact. Bowel sounds normal. NEUROLOGIC: He was awake, alert, responding appropriately. All cranial nerves intact. EXTREMITIES: He moves extremities without difficulty, although he is having severe pain on movement of his lower extremities. He has severe bilateral lymphedema involving both lower extremities. LABORATORY DATA: On arrival showed a white cell count of 8400, hemoglobin 10, hematocrit 31, MCV 89, and platelet count of 189,000. His chemistry showed a serum sodium 139, potassium 4.7, chloride 105, bicarbonate 29, anion gap of 5, BUN 42, creatinine 1.7, estimated GFR was 38 mL per minute. His glucose was 119. Calcium was 8.7, magnesium 2. Total bilirubin, AST, ALT, alkaline phosphatase were normal. Total protein was 7.3, albumin 2.8. First troponin was 0.383. ____ was 2062. His lipase was 71 and TSH was 2.1. His serum triglycerides 110, total cholesterol 110, LDL was 55, VLDL was 22, and HDL was 33 and ratio was 3. Her second set of cardiac enzyme went up to 1.018 and the third one was down to 0.749. Prothrombin time was 15.7, INR 1.3, PTT was 52. D-dimer was slightly elevated at 0.66. Urinalysis was essentially unremarkable. Toxic screen was positive for opiates. His Doppler ultrasound of both lower extremities showed no evidence bilateral lower extremity DVT. X-ray of the right knee showed no acute radiographic abnormality, moderate tricompartmental degenerative joint disease, diffuse soft tissue swelling, and her chest x-ray showed that the heart and mediastinum contours within normal limits. Lungs are somewhat hyperinflated, but otherwise clear. No consolidation, pleural effusion, no pneumothorax. ASSESSMENT AND PLAN: The patient was admitted with recurrent odd fall with right knee pain and no evidence of acute fracture, mild troponin elevation, chronic diastolic congestive heart failure, hypertension, hyperlipidemia, type 2 diabetes, and chronic lower extremity lymphedema. I basically reconciled all his medication. We will start him on some IV fluid and will repeat all his labs tomorrow morning. We will start also physical and occupational therapy tomorrow. ANKUR SANTANA MD DR: CARLOS/kristi JOB#: [id number] / [id number]
[2018-10-06 11:16] VITALS: BP 149/65
--- NOTE | 2018-10-06 16:53 | DS ---
DATE OF DISCHARGE: 10/06/2018 HISTORY OF PRESENT ILLNESS: The patient is an 83-year-old male patient who was admitted with right knee pain secondary to fall. He was unable to get up after he fell and was on the floor for about 3 hours until his was awakened hearing yelling for help. She called EMS. Troponin was noted to be mildly elevated upon arrival and therefore, the Cardiology team was consulted. The patient himself denied any chest pain, dizziness, diaphoresis, palpitation, shortness of breath, nausea, vomiting. He did complain of dyspnea on exertion, which he reports is his baseline. He was extensively investigated. He has x-ray of his knee that was unremarkable, showed no acute radiographic abnormality. He is known to have severe bilateral lymphedema for which he has been treated with Unna boot. There are also some pressure ulcers on his back for which he was seen by the wound care. He had 3 sets of cardiac enzymes that trended down, has had an echocardiogram, which basically showed the left ventricular systolic function is normal, ejection fraction was 55-60% and patient continued to be weak and debilitated. We did offer to admit him to a rehab center; however, the patient was adamant that he wants to go home. He has home health and would like to continue with Unna boot treatment for bilateral lower extremity lymphedema and therefore, the patient was discharged home with home health. PHYSICAL EXAMINATION: When I saw him this afternoon, he looked well and was clearly in no apparent respiratory distress. No pallor, jaundice, cyanosis or thyromegaly. No jugular venous distention, but marked bilateral lower extremity lymphedema. Her heart rate was 84, blood pressure 149/65, temperature was 98.2, respiratory rate 24 and oxygen saturation was 94%. The most relevant examination showed that he has bilateral lower extremity lymphedema, marked skin dryness and lichenification extending all the way to the inner aspect of both thighs. LABORATORY DATA: His lab work this morning showed a white cell count 6100, hemoglobin 9, hematocrit 27, MCV 89 and platelet count of 170,000. Serum sodium was 137, potassium 4.4, chloride 105, bicarbonate 26, anion gap of 6, BUN 29, creatinine 1.3. His glucose was 195, calcium was 8.4. His prothrombin time was 11.8, INR 1.1, aPTT was 30. Urinalysis was unremarkable. Toxic screen was positive for opiates. DISCHARGE MEDICATIONS: He was discharged home to continue his aspirin 81 mg once a day, cholecalciferol, vitamin D3 1000 International unit once a day, Flovent 50 mcg inhaler once a day, hydrocodone/APAP 7.5/325 one tablet twice a day, Lantus insulin 80 units at bedtime, ipratropium bromide, albuterol sulfate 3 mL by nebulizer 4 times a day, lidocaine ointment applied topically twice a day, losartan potassium 100 mg daily and menthol cream applied topically 3 times a day, metoprolol 150 mg p.o. b.i.d., oxybutynin 10 mg at bedtime, polyethylene glycol 17 grams daily, rivaroxaban or Xarelto 20 mg daily, Silver sulfadiazine for Silvadene cream applied to the wound, spironolactone 25 mg daily. FINAL DISCHARGE DIAGNOSES: The patient has mechanical fall, right knee pain, no acute fracture, mild troponin elevation, felt to be most likely demand ischemia, acute kidney injury on chronic kidney disease, treated with IV fluid and improved, chronic diastolic congestive heart failure, clinically compensated, hypertension, well controlled, hyperlipidemia, type 2 diabetes mellitus, seems to be reasonably controlled, chronic lower extremity lymphedema. ANKUR SANTANA MD DR: CARLOS/kristi JOB#: [id number] / [id number]
--- NOTE | 2018-10-06 22:23 | PN ---
DATE: 10/06/2018 SUBJECTIVE: The patient is sitting comfortably in his recliner, in no apparent distress. He continued to complain of shortness of breath on exertion, but denied any chest pain, denied any orthopnea or paroxysmal nocturnal dyspnea. Did complain of pain in his legs and knees. He apparently has had 3 sets of cardiac enzymes that ruled out myocardial infarction for which he was seen by the er registrar, has had an echocardiogram done, which showed that his left ventricular systolic function is normal, ejection fraction of 55-60%. There is grade 1 abnormal relaxation pattern. No evidence of significant pericardial effusion. Apparently, the patient has chronic bilateral lymphedema, which he has been using Unna boot at home; however, we will discuss the option of him going home with home health to get physical therapy at home. Unfortunately, when we spoke to his case sealer at the [facility] that they do not have any physical therapist to treat him at home. His family do not want him to come back home and they wanted to go to a rehab center. PHYSICAL EXAMINATION: GENERAL: When I saw him this afternoon, he looked well and was clearly in no apparent respiratory distress. No pallor, jaundice, cyanosis or thyromegaly. No jugular venous distention, but marked bilateral lower lymphedema. VITAL SIGNS: Her heart rate was 84, blood pressure was 149/65, temperature was 98.2, respiratory rate 24 and oxygen saturation was 94%. HEAD, EYES, EARS, NOSE AND THROAT: Showed normocephalic, atraumatic. NECK: Supple. HEART: Showed normal first and second heart sounds. No gallop or murmur. CHEST: Clear to auscultation. No crepitation or rhonchi. ABDOMEN: Markedly distended, soft, nontender. NEUROLOGIC: He was somewhat hard of hearing. All cranial nerves intact. He moves extremities without difficulty, ambulates with a walker, although he is unsteady. His intake was 1770, output was 775. LABORATORY DATA: Her lab work this morning showed a serum sodium 137, potassium 4.4, chloride 105, bicarbonate 26, anion gap of 6, BUN 29, creatinine 1.3, estimated GFR was 53 mL per minute. Her glucose was 95, calcium was 8.4. His white cell count was 6000, hemoglobin 9, hematocrit 27, MCV 89 and a platelet count of 170,000. Prothrombin time, INR and aPTT were normal. Urinalysis was unremarkable. Toxic screen was positive for opiates. ASSESSMENT: 1. Recurrent falls with right knee pain with no evidence of acute fracture. 2. Mild troponin elevation, felt due to demand ischemia. 3. Chronic diastolic congestive heart failure. 4. Hypertension. 5. Hyperlipidemia. 6. Type 2 diabetes mellitus. 7. Chronic lower extremity lymphedema. PLAN: To continue with physical and occupational therapy. I have spoken to the patient about Rehab and the family opted to come to discuss with him that option. ANKUR SANTANA MD DR: CARLOS/kristi JOB#: [id number] / [id number]
== END 2018-10-06 14:20 | disposition home or self-care (01) | DRG 682 ==
LOC: ER 01:33 → 1 SOUTH 04:00
PROVIDERS: ADMIT Internal Medicine; ATTEND Internal Medicine
DX: N17.9 Acute kidney failure, unspecified (principal); E43 Unspecified severe protein-calorie malnutrition; I13.0 Hypertensive heart and chronic kidney disease with heart failure and stage 1 through stage 4 chronic kidney disease, or unspecified chronic kidney disease; I50.42 Chronic combined systolic (congestive) and diastolic (congestive) heart failure; I24.8 Other forms of acute ischemic heart disease; S80.212A Abrasion, left knee, initial encounter; S80.211A Abrasion, right knee, initial encounter; S80.02XA Contusion of left knee, initial encounter; S80.01XA Contusion of right knee, initial encounter; D64.9 Anemia, unspecified; I25.10 Atherosclerotic heart disease of native coronary artery without angina pectoris; J44.9 Chronic obstructive pulmonary disease, unspecified; E11.22 Type 2 diabetes mellitus with diabetic chronic kidney disease; F32.9 Major depressive disorder, single episode, unspecified; W18.39XA Other fall on same level, initial encounter; I87.8 Other specified disorders of veins; N18.9 Chronic kidney disease, unspecified; E78.5 Hyperlipidemia, unspecified; I89.0 Lymphedema, not elsewhere classified; L89.90 Pressure ulcer of unspecified site, unspecified stage; Z82.3 Family history of stroke; Z82.49 Family history of ischemic heart disease and other diseases of the circulatory system; Y93.89 Activity, other specified; Y92.89 Other specified places as the place of occurrence of the external cause; Y99.8 Other external cause status; Z68.39 Body mass index [BMI] 39.0-39.9, adult; Z87.891 Personal history of nicotine dependence; Z83.3 Family history of diabetes mellitus; Z98.41 Cataract extraction status, right eye; Z98.42 Cataract extraction status, left eye
CPT/HCPCS: 36415; 71045; 73564; 80048; 80061; 80076; 80307; 81001; 82550; 82947; 83690; 83735; 83880; 84443; 84484; 85025; 85379; 85610; 85730; 93005; 93306; 93970; 94640; 96372; 96374; J1644; J1650; J1815; J1940; J2270; J7120; J7620; J7626; 99285-25; J7030